=== PATIENT | female | born 1945 | race Caucasian/White ===

== ENCOUNTER 2017-10-02 12:38 | Emergency (ER) | payer OTHER ==
[~2017-10-02] VITALS: Ht 157.5 cm; Wt 54.4 kg
[2017-10-02] MEDS ORDERED: LEVOTHYROXINE75 MCG PO (13:34)
--- NOTE | 2017-10-02 13:56 | Diagnostic Imaging Report ---
Right knee - 3 views HISTORY: Pain. COMPARISON: None available. FINDINGS: Bones: Cortical irregularity with lucency is noted in the patella, best visualized on the lateral projection. No displaced fracture. No expansile lytic or sclerotic lesion. Joints: The joint spaces are well-maintained. No dislocation. Small suprapatellar joint effusion. Soft tissues: The soft tissues appear unremarkable. IMPRESSION: Lucency in the patella may represent a nondisplaced fracture. Correlate with focal tenderness for the need of additional imaging. Signed by: Dr. Roberto Camilo M.D. on 10/02/2017 1:53 PM
== END 2017-10-02 15:06 | disposition home or self-care (01) ==
LOC: ER 12:38
DX: S80.01XA Contusion of right knee, initial encounter (principal); W18.30XA Fall on same level, unspecified, initial encounter; Y93.01 Activity, walking, marching and hiking; Y92.830 Public park as the place of occurrence of the external cause
CPT/HCPCS: 99283

== ENCOUNTER 2021-06-15 13:57 | Outpatient (RCR) | payer OTHER ==
[~2021-06-15 13:57] MED LIST: LEVOTHYROXINE75 MCG PO
== END 2021-06-16 ==
LOC: PT 13:57
PROVIDERS: ATTEND Specialist
DX: S46.011A Strain of muscle(s) and tendon(s) of the rotator cuff of right shoulder, initial encounter (principal)